=== PATIENT | male | born 1985 | race Caucasian/White ===

== ENCOUNTER 2018-04-21 21:59 | Emergency (ER) | payer OTHER ==
[~2018-04-21] VITALS: Ht 185.4 cm; Wt 113.4 kg
[~2018-04-21 21:59] MED LIST: ALPRAZOLAM; AUGMENTIN 875875 M1 PO; BACTROBAN CREAM30 G1 TOP; DOXYCYCLINE 10100 M1 PO; DOXYCYCLINE 10100 MG PO; FLECTOR1 EA TOP; IBUPROFEN 800800 M1 PO; LORTAB 5-500 T1 EAC1 PO; NAPROSYN500 MG PO; NOHOMEMEDICATIONS; NORCO 5-325 TA1 EACH PO; PENICILLIN VK500 MG PO; TRIAMCINOLONE A80 G2 TOP; ULTRAM 50MG TAB50 MG PO; ZOFRAN 4 MG ORAL4 M1 DIS; ZOFRAN ODT4 MG PO
[2018-04-21] MEDS ORDERED: AMOXICILLIN 50500 MG PO (22:44)
[2018-04-21] MEDS ORDERED: ACETAMINOPHEN-1 EAC1 PO (22:44)
[2018-04-21 22:47] LABS: INFLUENZA A ANTIGEN None Detected (None Detect); INFLUENZA B ANTIGEN None Detected (None Detect)
[2018-04-21 22:58] VITALS: BP 145/97
== END 2018-04-21 22:58 | disposition home or self-care (01) ==
LOC: M.ERS 21:59
PROVIDERS: Physician Assistant
DX: J02.9 Acute pharyngitis, unspecified (principal); F17.200 Nicotine dependence, unspecified, uncomplicated; F41.9 Anxiety disorder, unspecified; J45.909 Unspecified asthma, uncomplicated

== ENCOUNTER 2018-11-29 16:21 | Emergency (ER) | payer OTHER ==
[~2018-11-29] VITALS: Ht 185.4 cm; Wt 106.6 kg
[~2018-11-29 16:21] MED LIST changes: +ACETAMINOPHEN-1 EAC1 PO; +AMOXICILLIN 50500 MG PO
[2018-11-29] MEDS ORDERED: AMOXIL 875 MG875 M1 PO (16:56)
[2018-11-29 17:08] VITALS: BP 135/81
== END 2018-11-29 17:10 | disposition home or self-care (01) ==
LOC: M.ERS 16:21
DX: J02.9 Acute pharyngitis, unspecified (principal); F41.9 Anxiety disorder, unspecified; J45.909 Unspecified asthma, uncomplicated; F17.210 Nicotine dependence, cigarettes, uncomplicated; Z86.14 Personal history of Methicillin resistant Staphylococcus aureus infection

== ENCOUNTER 2019-08-06 01:19 | Emergency (ER) | payer OTHER ==
[~2019-08-06] VITALS: Ht 185.4 cm; Wt 118.8 kg
[~2019-08-06 01:19] MED LIST changes: +AMOXIL 875 MG875 M1 PO
[2019-08-06] MEDS ORDERED: IBU800 MG PO (01:31)
[2019-08-06] MEDS ORDERED: AMOXICILLIN 50500 MG (01:32)
[2019-08-06] MEDS ORDERED: HYDROCODON-ACE1 EAC7 PO (02:51)
[2019-08-06 03:05] VITALS: BP 160/90
== END 2019-08-06 03:05 | disposition home or self-care (01) ==
LOC: M.ERS 01:19
DX: K13.79 Other lesions of oral mucosa (principal); I10 Essential (primary) hypertension; J45.909 Unspecified asthma, uncomplicated; Z86.14 Personal history of Methicillin resistant Staphylococcus aureus infection

== ENCOUNTER 2020-09-29 10:37 | Emergency (ER) | payer OTHER ==
[~2020-09-29 10:37] MED LIST changes: +AMOXICILLIN 50500 MG; +HYDROCODON-ACE1 EAC7 PO; +IBU800 MG PO
== END 2020-09-29 11:45 | disposition left against medical advice (07) ==
LOC: M.ERS 10:37
DX: M25.562 Pain in left knee (principal); Z53.21 Procedure and treatment not carried out due to patient leaving prior to being seen by health care provider

== ENCOUNTER 2020-10-07 19:16 | Emergency (ER) | payer OTHER ==
[~2020-10-07] VITALS: Ht 185.4 cm; Wt 126.5 kg
[2020-10-07 19:59] LABS: URINE BILIRUBIN NEGATIVE (Negative); URINE BLOOD NEGATIVE (Negative); URINE CLARITY CLEAR; URINE COLOR YELLOW; URINE GLUCOSE-RANDOM NEGATIVE (Negative); URINE KETONES TRACE (Negative); URINE LEUKOCYTES NEGATIVE (Negative); URINE NITRITE NEGATIVE (Negative); URINE PROTEIN NEGATIVE (Negative); URINE UROBILINOGEN 0.2 E.U./dl (0.2-1.0)
[2020-10-07 20:06] LABS: AMP/METHAMP Negative (Negative); BARBITURATES Negative (Negative); BENZODIAZEPINES Negative (Negative); COCAINE Negative (Negative); METHADONE Negative (Negative); OPIATES Negative (Negative); PCP Negative (Negative); THC Negative (Negative)
[2020-10-07 20:07] LABS: HEMATOCRIT 42.6 % (42.0-52.0); HEMOGLOBIN 14.3 gm/dL (14.0-18.0); MCHC 33.5 g/dL (28.0-37.0); MCV 83.7 fL (80.0-100.0); MPV 8.8 fl. (7.2-11.1); RBC 5.09 mil/uL (4.50-6.00); RDW-CV 13.9 % (10.5-14.5); WBC 8.1 thou/uL (4.0-11.0)
[2020-10-07 20:16] LABS: CALCIUM 8.7 mg/dL (8.5-10.1); CREATININE 0.9 mg/dL (0.6-1.3); POTASSIUM 3.6 mmol/L (3.5-5.1)
[2020-10-07 20:21] LABS: ALBUMIN 3.8 g/dL (3.4-5.0); TOTAL BILIRUBIN 0.3 mg/dL (<0.1-1.0); TOTAL PROTEIN 7.3 g/dL (6.4-8.2)
[2020-10-07 20:29] LABS: ALCOHOL 68 mg/dL (<10); SALICYLATE 3.7 mg/dL (2.8-20.0)
[2020-10-07 20:31] LABS: ACETAMINOPHEN < 2 ug/mL (10-30)
[2020-10-07 22:17] VITALS: BP 150/84
--- NOTE | 2020-10-08 11:16 | EKG ---
[place] [address] ELECTROCARDIOGRAM REPORT Name: JAMEY ENGEL II Room: [facility]#: [id number] Admission: 10/07/20 Attend Phys: Discharge: 10/07/20 Date of : 81 Date of Service: 10/07/201922 Report #: [id number] THIS REPORT FOR: //name// [facility] ED Test Date: 2020-10-07 Test Time: 19:23:24 Pat Name: JAMEY ENGEL Department: Room: Gender: [employer] Supervisor: [place] : 1985 Requested By: Madyson Vargas Order Number: [id number] MD: Hesham Luna Measurements Intervals [place] Rate: 92 P: 43 ID: [id number] QRS: 65 QRSD: 82 T: 48 QT: 349 QTc: 432 Interpretive Statements Sinus rhythm Baseline wander in lead(s) II,III,aVF,V2 Compared to ECG 04/19/2011 19:19:12 No significant changes Electronically Signed On 10-08-2020 11:16:08 CDT by Hesham Luna [email or web address] <ELECTRONICALLY SIGNED> By: Hesham Luna MD, [facility] 10/08/20 1116 22 22 Hesham Luna MD, [facility] /EPI
== END 2020-10-07 22:18 | disposition home or self-care (01) ==
LOC: M.ERS 19:16
PROVIDERS: Personal Emergency Response Attendant
DX: E86.0 Dehydration (principal); F41.9 Anxiety disorder, unspecified; J45.909 Unspecified asthma, uncomplicated; I10 Essential (primary) hypertension; F17.210 Nicotine dependence, cigarettes, uncomplicated; Z79.1 Long term (current) use of non-steroidal anti-inflammatories (NSAID); Z79.899 Other long term (current) drug therapy